=== PATIENT | male | born 1975 | race Caucasian/White ===

== ENCOUNTER 2017-04-08 21:45 | Inpatient (IN) | payer MEDICAID ==
[~2017-04-08] VITALS: Ht 193 cm; Wt 117.3 kg
[2017-04-08 21:30] VITALS: BP 108/68
[~2017-04-08 21:45] MED LIST: GABA300C PO; LEVO50TA11 PO; MIRT-6 PO; OMEG100019 PO
[2017-04-09] MEDS: ZOLPIDEM TARTRATE 10 MG TABLET PO PRN (00:51)
[2017-04-09] MEDS: LORazepam 2 MG TABLET PO PRN ×4 (00:51→21:06)
[2017-04-09 00:52] VITALS: BP 124/76
[2017-04-09 08:32] LABS: APPEARANCE,URINE CLEAR (CLEAR); GLUCOSE, URINE (UA) NEGATIVE (NEGATIVE); KETONES,URINE TRACE mg/dL (NEGATIVE); LEUKOCYTE ESTERASE ,URINE NEGATIVE (NEGATIVE); OCCULT BLOOD,URINE NEGATIVE (NEGATIVE); PROTEIN,URINE NEGATIVE (NEGATIVE)
[2017-04-09 08:38] LABS: ADD UA MICROSCOPIC NO
[2017-04-09 09:00] VITALS: BP 128/77
[2017-04-09] MEDS: HALOPERIDOL 5 MG TABLET PO PRN ×2 (09:07→21:06)
[2017-04-09] MEDS: METHADONE HCL 10 MG TABLET PO SCH (09:37)
[2017-04-09] MEDS ORDERED: ALBUTEROL SULFATE HFA 90 MCG/PUFF 8 GM INHALER IH PRN (12:15)
[2017-04-09] MEDS ORDERED: MAG HYDROX/AL HYDROX/SIMETH ES 30 ML SUSPENSION UDCUP PO PRN (12:15)
[2017-04-09] MEDS ORDERED: ONDANSETRON HCL 4 MG TABLET PO PRN (12:15)
[2017-04-09] MEDS ORDERED: CloNIDine HCL 0.1 MG TABLET PO PRN (12:15)
[2017-04-09] MEDS ORDERED: LOPERAMIDE HCL 2 MG CAPSULE PO PRN (12:15)
[2017-04-09] MEDS ORDERED: ACETAMINOPHEN 325 MG TABLET PO PRN (12:15)
[2017-04-09] MEDS ORDERED: BENZOCAINE/MENTHOL LOZENGE [8 LOZENGES/PACKET] MM PRN (12:15)
[2017-04-09] MEDS ORDERED: PETROLATUM,WHITE 71 GM JELLY TP PRN (12:15)
[2017-04-09] MEDS ORDERED: IBUPROFEN 600 MG TABLET PO PRN (12:15)
[2017-04-09] MEDS ORDERED: BACITRACIN 28.4 GM OINTMENT TP PRN (12:15)
[2017-04-09] MEDS ORDERED: MAGNESIUM HYDROXIDE SUSPENSION 30 ML UDCUP PO PRN (12:15)
[2017-04-09] MEDS: GABAPENTIN 300 MG CAPSULE PO SCH ×2 (13:12→16:50)
[2017-04-09 16:59] VITALS: BP 108/63
[2017-04-09] MEDS: MIRTAZAPINE 30 MG TABLET PO SCH (20:08)
[2017-04-10] MEDS: LEVOTHYROXINE SODIUM 50 MCG TABLET PO SCH (06:29)
[2017-04-10] MEDS: METHADONE HCL 10 MG TABLET PO SCH (08:05)
[2017-04-10] MEDS: GABAPENTIN 300 MG CAPSULE PO SCH ×3 (08:06→15:58)
[2017-04-10] MEDS: FISH OIL/OMEGA-3 FATTY ACIDS 500 MG CAPSULE PO SCH (08:06)
[2017-04-10] MEDS: LORazepam 2 MG TABLET PO PRN ×3 (08:07→15:58)
[2017-04-10 08:30] VITALS: BP 114/86
[2017-04-10] MEDS: HALOPERIDOL 5 MG TABLET PO PRN (15:58)
[2017-04-10 16:29] VITALS: BP 125/71
[2017-04-10] MEDS: MIRTAZAPINE 30 MG TABLET PO SCH (20:43)
[2017-04-11] MEDS: LORazepam 2 MG TABLET PO PRN ×4 (03:17→18:36)
[2017-04-11] MEDS: LEVOTHYROXINE SODIUM 50 MCG TABLET PO SCH (06:49)
[2017-04-11] MEDS: GABAPENTIN 300 MG CAPSULE PO SCH ×3 (09:00→17:31)
[2017-04-11] MEDS: FISH OIL/OMEGA-3 FATTY ACIDS 500 MG CAPSULE PO SCH (09:00)
[2017-04-11] MEDS: METHADONE HCL 10 MG TABLET PO SCH (09:00)
[2017-04-11 10:39] VITALS: BP 122/77
[2017-04-11] MEDS: HALOPERIDOL 5 MG TABLET PO PRN (18:36)
[2017-04-11 20:32] VITALS: BP 113/79
[2017-04-11] MEDS: MIRTAZAPINE 30 MG TABLET PO SCH (21:01)
[2017-04-11] MEDS: ZOLPIDEM TARTRATE 10 MG TABLET PO PRN (22:06)
[2017-04-12] MEDS: LEVOTHYROXINE SODIUM 50 MCG TABLET PO SCH (06:54)
[2017-04-12] MEDS: GABAPENTIN 300 MG CAPSULE PO SCH ×2 (08:43→12:32)
[2017-04-12] MEDS: METHADONE HCL 10 MG TABLET PO SCH (08:43)
[2017-04-12] MEDS: FISH OIL/OMEGA-3 FATTY ACIDS 500 MG CAPSULE PO SCH (08:44)
[2017-04-12] MEDS: LORazepam 2 MG TABLET PO PRN (08:48)
[2017-04-12 08:54] VITALS: BP 135/100
== END 2017-04-12 14:15 | disposition home or self-care (01) | DRG 754 ==
LOC: 3EI 21:45
PROVIDERS: ADMIT Psychiatry & Neurology Child & Adolescent Psychiatry; ATTEND Psychiatry & Neurology Child & Adolescent Psychiatry
DX: F32.9 Major depressive disorder, single episode, unspecified (principal); F13.20 Sedative, hypnotic or anxiolytic dependence, uncomplicated; E03.9 Hypothyroidism, unspecified; E66.9 Obesity, unspecified; E78.5 Hyperlipidemia, unspecified; F12.90 Cannabis use, unspecified, uncomplicated; F17.200 Nicotine dependence, unspecified, uncomplicated; F41.9 Anxiety disorder, unspecified; G47.00 Insomnia, unspecified; G89.29 Other chronic pain; K21.9 Gastro-esophageal reflux disease without esophagitis; Z87.442 Personal history of urinary calculi; Z71.51 Drug abuse counseling and surveillance of drug abuser; Z71.6 Tobacco abuse counseling
CPT/HCPCS: 80307